=== PATIENT | female | born 1975 | race Caucasian/White ===

== ENCOUNTER 2017-09-29 13:21 | Outpatient (CLI) | payer BC ==
--- NOTE | 2017-09-29 16:15 | ULT ---
THYROID SONOGRAM: 09/29/17 HISTORY: Thyroid nodules. FINDINGS: The right thyroid lobe is 5.1 cm in length. A lobular heterogeneous predominantly hypoechoic nodule within the mid portion laterally is 1.0 x 0.7 cm greatest diameter. The isthmus is 0.6 cm in thickne ss. The left thyroid lobe is 5.3 cm in length. A more homogeneous well circumscribed hypoechoic 0.8 cm n odule is present at the superior pole of the left thyroid lobe. IMPRESSION: Small nonspecific bilateral thyroid lobe nodules as detailed above. POS: PEPPER
== END 2017-09-29 13:22 | disposition home or self-care (01) ==
LOC: ULT 13:21
PROVIDERS: ATTEND Family Medicine
DX: E04.1 Nontoxic single thyroid nodule (principal); E04.2 Nontoxic multinodular goiter
CPT/HCPCS: 76536

== ENCOUNTER 2017-10-10 15:30 | Outpatient (CLI) | payer BC ==
--- NOTE | 2017-10-10 16:30 | MMO ---
SCREENING MAMMOGRAPHY 10/10/17 COMPARISON: 09/08/16, 11/14/14. HISTORY: Screening mammography. FINDINGS: The patient's mammogram is interpreted with the assistance of computer aided detection. There is sca ttered fibroglandular densities present. There are benign calcification seen bilaterally. There is no dominant mass or architectural distorti on. No concerning microcalcifications are evident. IMPRESSION: BI-RADS 2: Benign Finding(s) Routine annual screening mammography (for women over age 40). POS: PEPPER
== END 2017-10-10 15:31 | disposition home or self-care (01) ==
LOC: SCSMAMMO 15:30
PROVIDERS: ATTEND Family Medicine
DX: Z12.31 Encounter for screening mammogram for malignant neoplasm of breast (principal)
CPT/HCPCS: 77067; G0202

== ENCOUNTER 2018-07-12 08:19 | Outpatient (CLI) | payer BC | END 2018-07-12 08:20 | disposition home or self-care (01) | LOC: BICRAD 08:19 | PROVIDERS: ATTEND Physician Assistant Medical | DX: M79.671 Pain in right foot (principal); M79.674 Pain in right toe(s) ==

== ENCOUNTER 2020-12-18 12:02 | Emergency (ER) | payer BC ==
--- NOTE | 2020-12-18 12:55 | CT ---
Head CT without contrast 12/18/2020: Comparison: None HISTORY: Fall with loss of consciousness, dizziness TECHNIQUE: Axial CT imaging at 5 mm intervals from vertex through skull base without contrast. Ramos l and sagittal reformatted imaging obtained. FINDINGS: The visualized paranasal sinuses and mastoid air cells are unremarkable. No displaced calvarial fracture. There is no intracranial hemorrhage, midline shift, mass effect, or ventricular enlargement. IMPRESSION: No intracranial hemorrhage or displaced calvarial fracture.
--- NOTE | 2020-12-18 13:48 | RAD ---
EXAM: Portable chest PROVIDED CLINICAL HISTORY: Syncope COMPARISON: 01/28/2012 FINDINGS: Cardiac and mediastinal silhouette is within normal limits. No focal consolidation, pleural fluid or pneumothorax evident. IMPRESSION: No evidence for an acute cardiopulmonary process.
[2020-12-18] MEDS ORDERED: Ondansetron PF 4 MG/2 ML Vial ONE (13:49)
[2020-12-18] MEDS ORDERED: Morphine 4 MG/ML VIAL ONE (13:49)
[2020-12-18 14:12] LABS: #Eosinphils 0.2 thou/uL (0.0-0.7); #Lymphocytes 2.5 thou/uL (1.20-3.40); #Monocytes 0.4 thou/uL (0.11-0.59); #Neutrophils 5.5 thou/uL (1.40-6.50); %Basophils 0.3 % (0.0-1.0); %Eosinophils 1.8 % (0.0-10.0); %Lymphocytes 29.3 % (21.0-51.0); %Neutrophils 63.6 % (42.0-75.0); Mean Corpuscular HGB CONC 32.5 g/dL (32.0-36.0); Mean Corpuscular Hemoglobin 25.9 pg (27.0-31.0); Mean Corpuscular Volume 79.6 fL (78.0-98.0); Mean Platelet Volume 9.7 fL (7.4-10.4); Platelet Count 290 thou/uL (130-400); Red Blood Cell (RBC) Count 4.63 mill/uL (4.20-5.40); White Blood Cell (WBC) Count 8.6 thou/uL (4.8-10.8)
[2020-12-18 14:15] LABS: BHCG - Serum Negative (NEGATIVE); Pregs Control Background? CLEAR/WHITE (CLR/WHITE); Pregs Control Bar Appear? YES (CONTROL BAR)
[2020-12-18 14:42] LABS: ALT (SGPT) 10 U/L (8-55); AST (SGOT) 18 U/L (5-34); Alkaline Phosphatase 66 U/L (40-110); Anion Gap 16 mmol/L (10-20); BUN (Urea Nitrogen) 9 mg/dL (7.0-18.7); Bilirubin, Total 0.3 mg/dL (0.2-1.2); CK (CPK) 47 U/L (29-168); Calc. Creatinine Clearance 0 mL/min (70-130); Calcium 9.3 mg/dL (7.8-10.44); Carbon Dioxide 23 mmol/L (22-29); Chloride 101 mmol/L (98-107); Globulin 3.5 g/dL (2.4-3.5); Glucose 105 mg/dL (70-105); Potassium 4.9 mmol/L (3.5-5.1); Protein, Total 7.5 g/dL (6.0-8.3); Sodium 135 mmol/L (136-145)
[2020-12-18 15:32] LABS: Bacteria/HPF 3+ HPF (None Seen); Bilirubin Negative (Negative); Blood, Urine Negative (Negative); Clarity Clear (Clear); Glucose, Urine (Dipstick) 300 mg/dL (Negative); Ketone, Urine Negative (Negative); Leukocyte 75 Leu/uL (Negative); Nitrite Negative (Negative); Protein, Urine (Dipstick) Negative (Neg-Trace); RBC/HPF 0-3 HPF (0-3); Specific Gravity, Urine 1.013 (1.002-1.036); Urobilinogen Normal mg/dL (Less than 2)
[2020-12-18] MEDS ORDERED: Meclizine HCl 25 MG TAB ONE (16:01)
--- NOTE | 2021-01-02 22:17 | EKG ---
Test Reason : SYNCOPE Blood Pressure : / mmHG Vent. Rate : 088 BPM Atrial Rate : 088 BPM P-R Int : 120 ms QRS Dur : 080 ms QT Int : 396 ms P-R-T Axes : 037 003 023 degrees QTc Int : 479 ms Normal sinus rhythm Minimal voltage criteria for LVH, may be normal variant Borderline ECG Confirmed by JOSE MATA DO ([id number]), associate editor KATHIE BOYD ([id number]) on 01/02/2021 10:17:14 PM Referred By: BOUBACAR Confirmed By:JOSE MATA DO
== END 2020-12-18 16:50 | disposition home or self-care (01) ==
LOC: ERS 12:02
DX: R55 Syncope and collapse (principal); S06.9X1A Unspecified intracranial injury with loss of consciousness of 30 minutes or less, initial encounter; W18.39XA Other fall on same level, initial encounter; Z79.899 Other long term (current) drug therapy; Z79.84 Long term (current) use of oral hypoglycemic drugs; E11.9 Type 2 diabetes mellitus without complications; E78.5 Hyperlipidemia, unspecified; E78.00 Pure hypercholesterolemia, unspecified; I10 Essential (primary) hypertension
CPT/HCPCS: 70450; 71045; 80053; 81003; 81015; 82550; 84484; 84703; 85025; 93005; 96374; J2270; J2405

== ENCOUNTER 2021-11-05 13:06 | Outpatient (CLI) | payer BC | END 2021-11-05 13:07 | disposition home or self-care (01) | LOC: BICMAMMO 13:06 | PROVIDERS: ATTEND Family Medicine | DX: Z12.31 Encounter for screening mammogram for malignant neoplasm of breast (principal) | CPT/HCPCS: 77063; 77067 ==

== ENCOUNTER 2023-07-07 13:48 | Outpatient (CLI) | payer BC | END 2023-07-07 13:49 | disposition home or self-care (01) | LOC: BICMAMMO 13:48 | PROVIDERS: ATTEND Family Medicine | DX: Z12.31 Encounter for screening mammogram for malignant neoplasm of breast (principal) | CPT/HCPCS: 77063; 77067 ==